=== PATIENT | male | born 2000 | race Caucasian/White ===

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

== ENCOUNTER → 2025-01-14 | Outpatient (CLI) | payer BC ==
--- NOTE | 2025-01-15 20:16 | MR ---
EXAMINATION TYPE: MR shoulder RT wo con DATE OF EXAM: 01/14/2025 9:14 PM COMPARISON: 12/03/2024. CLINICAL INDICATION: Male, 24 years old with history of M25.511; PHH, Right shoulder pain TECHNIQUE: Multi planar, multi sequence imaging was performed of the shoulder including: Axial and coronal yazmin n density fat-saturated sequences, T2 fat-saturated sagittal sequence, and T1-weighted imaging. No G adolinium was given. Right shoulder pain FINDINGS: Supraspinatus tendon: Intact Infraspinatus tendon: Intact Subscapularis tendon: Intact Teres minor tendon: Intact Long head biceps tendon: Intact, appropriately positioned within the bicipital groove. Normal ins ertion at the bicipital anchor. Acromioclavicular joint: Mild osteoarthrosis. Normal subacromial space. No effusion. Glenohumeral joint: Normal joint space and alignment. Normal articular cartilage. No effusion. Glenoid labrum: Intact, within the limits of non arthrographic technique. Muscle volume: Normal. Bone marrow: Normal. Soft tissues: Unremarkable. Joint/bursal fluid: None IMPRESSION: 1. No evidence for fracture or bony edema. No significant tendinopathy. 2. Mild degeneration changes in the common clavicular joint. [facility], , 01/15/2025 8:14 PM
== END | disposition home or self-care (01) ==
LOC: RADMRIMAIN 20:00
PROVIDERS: ATTEND Orthopaedic Surgery
DX: M19.011 Primary osteoarthritis, right shoulder (principal)